=== PATIENT | male | born 1970 | race Caucasian/White ===

== ENCOUNTER 2022-01-09 11:39 | Outpatient (CLI) | payer OTHER, SELFPAY ==
[2022-01-09 21:40] LABS: Chloride* 102 mmol/L (96-114)
[2022-01-09 21:41] LABS: Potassium* 4.8 mmol/L (3.6-5.1); Sodium* 136 mmol/L (135-149)
[2022-01-09 21:43] LABS: Aspartate Amino Transferase* 29 U/L (12-35); Bilirubin Total* 0.4 mg/dL (0.1-1.5); Blood Urea Nitrogen* 45 mg/dL (7-30); Carbon Dioxide* 25 mmol/L (20-32); Cholesterol* 269 mg/dL (90-199); Creatinine* 2.6 mg/dL (0.5-1.5); Estimated Glomerular Filt Rate 29 ml/min; Total Protein* 6.9 g/dL (6.0-8.3)
[2022-01-09 21:44] LABS: Alanine Aminotransferase* 25 U/L (4-50); Alkaline Phosphatase* 72 U/L (40-150); Glucose* 123 mg/dL (60-115); HDL Cholesterol* 37 mg/dL (>=40); LDL Cholesterol Calculated 132 mg/dL (<100)
[2022-01-09 22:06] LABS: Triglycerides* 502 mg/dL (40-149)
[2022-01-10 03:59] LABS: Microalbumin Creatinine Ratio 80 mg/g (0-30); Microalbumin Urine 8 mg/dL
== END 2022-01-09 11:40 | disposition home or self-care (01) ==
PROVIDERS: PCP Physician Assistant Medical; Visit Provider Physician Assistant Medical
DX: E11.39 Type 2 diabetes mellitus with other diabetic ophthalmic complication (principal); R79.89 Other specified abnormal findings of blood chemistry; E87.5 Hyperkalemia; I10 Essential (primary) hypertension; D63.8 Anemia in other chronic diseases classified elsewhere
CPT/HCPCS: 80053; 80061; 82043; 82570

== ENCOUNTER 2022-04-08 10:42 | Outpatient (CLI) | payer OTHER, SELFPAY ==
[2022-04-09 11:58] LABS: Creatinine Urine 35.5 mg/dL
[2022-04-09 12:29] LABS: Vitamin B12* 309 pg/mL (243-894)
[2022-04-09 12:40] LABS: Microalbumin Creatinine Ratio 2470 mg/g (0-30); Microalbumin Urine 88 mg/dL
== END 2022-04-08 10:43 | disposition home or self-care (01) ==
PROVIDERS: PCP Physician Assistant Medical; Visit Provider Physician Assistant Medical
DX: E03.9 Hypothyroidism, unspecified (principal); E11.39 Type 2 diabetes mellitus with other diabetic ophthalmic complication
CPT/HCPCS: 82043; 82570; 82607; 84443

== ENCOUNTER 2022-09-19 08:45 | Outpatient (CLI) | payer OTHER, SELFPAY | END 2022-09-19 08:46 | disposition home or self-care (01) | LOC: NFLDREF 18:42 | PROVIDERS: PCP Physician Assistant Medical; Referring Provider Physician Assistant Medical; Visit Provider Physician Assistant Medical | DX: Z00.00 Encounter for general adult medical examination without abnormal findings (principal); E03.9 Hypothyroidism, unspecified; E11.9 Type 2 diabetes mellitus without complications; E78.5 Hyperlipidemia, unspecified; Z12.5 Encounter for screening for malignant neoplasm of prostate | CPT/HCPCS: 80053; 80061; 82043; 82570; 84153; 84443 ==

== ENCOUNTER 2022-10-18 13:52 | Outpatient (CLI) | payer OTHER, SELFPAY ==
--- NOTE | 2022-10-18 15:00 | CRLHL7_ITS ---
For Patients: As a result of the Century Cures Act, medical imaging exams and procedure reports are released immediately into your electronic medical record. You may view this report before your referring provider. If you have questions, please contact your health care provider. CLINICAL HISTORY: carotid artery stenosis follow up Comparison: 12/22/2014 TECHNIQUE: The carotid circulations and the vertebral arteries in the neck were examined with anglin-scale ultrasound, color-flow and Doppler spectral analysis. Degrees of stenosis were determined using SRU 2002 Consensus Panel Criteria. FINDINGS: Sonographic images demonstrate bilateral atherosclerotic plaque formation without suspicious soft tissue mass. There was antegrade blood flow demonstrated within the vertebral arteries. Elevated velocity within the right subclavian artery measuring up to 255 cm/second. The spectral Doppler tracings of the common carotid, internal and external carotid arteries demonstrate no abnormal turbulence or spectral broadening. There was no significant elevation of peak systolic blood flow which would indicate a hemodynamically-significant stenosis by SRU criteria. The ICA/CCA peak systolic velocity ratio measures 0.9 on the right and 1.4 on the left. IMPRESSION: Less than 50 percent stenosis of the internal carotid arteries bilaterally. Elevated velocity within the right subclavian artery. This may signify subclavian artery stenosis. Dictated by Yuri Bolaños MD @ 10/20/2022 12:40:43 PM (Electronically Signed)
== END 2022-10-18 13:53 | disposition home or self-care (01) ==
LOC: RAD 13:54
PROVIDERS: PCP Physician Assistant Medical; Visit Provider Physician Assistant Medical
DX: I35.0 Nonrheumatic aortic (valve) stenosis (principal); I65.23 Occlusion and stenosis of bilateral carotid arteries; I34.0 Nonrheumatic mitral (valve) insufficiency; I65.29 Occlusion and stenosis of unspecified carotid artery
CPT/HCPCS: 93306; 93880

== ENCOUNTER 2022-10-29 09:39 | Outpatient (CLI) | payer OTHER, SELFPAY ==
--- NOTE | 2022-10-29 11:08 | W.ANESCHARGE ---
Anesthesia Charges Start Date/Time Anesthesia Start Date: 10/29/22 Anesthesia Start Time: 10:52 Stop Date/Time Anesthesia Stop Date: 10/29/22 Anesthesia Stop Time: 12:05
--- NOTE | 2022-10-29 12:07 | W.ANESCHARGE ---
Anesthesia Charges Start Date/Time Anesthesia Start Date: 10/29/22 Anesthesia Start Time: 10:52 Stop Date/Time Anesthesia Stop Date: 10/29/22 Anesthesia Stop Time: 12:05
== END 2022-10-29 09:40 | disposition home or self-care (01) ==
LOC: OP CLINIC 09:39
PROVIDERS: PCP Physician Assistant Medical; Visit Provider Surgery
DX: Z12.11 Encounter for screening for malignant neoplasm of colon (principal); K63.5 Polyp of colon; Z86.010 Personal history of colon polyps; K52.9 Noninfective gastroenteritis and colitis, unspecified; D50.9 Iron deficiency anemia, unspecified
CPT/HCPCS: 43239; 45380; 45385; 813; 88305; J2704

== ENCOUNTER 2022-12-30 13:15 | Outpatient (CLI) | payer OTHER, SELFPAY | END 2022-12-30 13:16 | disposition home or self-care (01) | PROVIDERS: PCP Physician Assistant Medical; Visit Provider Physician Assistant Medical | DX: E11.39 Type 2 diabetes mellitus with other diabetic ophthalmic complication (principal); D63.8 Anemia in other chronic diseases classified elsewhere | CPT/HCPCS: 82607; 82746; 83540; 83550 ==

== ENCOUNTER 2023-07-15 14:42 | Outpatient (REF) | payer OTHER, SELFPAY ==
[2023-07-15 15:51] LABS: Hemoglobin* 12.6 gm/dL (13.5-17.5)
[2023-07-15 16:02] LABS: Creatinine Urine 99.9 mg/dL
[2023-07-15 16:08] LABS: Protein Creatinine Ratio Urine 2.65 (0-0.19); Total Protein Urine 265 mg/dL
[2023-07-15 16:18] LABS: Vitamin D 25 Hydroxy* 25 ng/mL (30-80)
[2023-07-15 16:38] LABS: Albumin* 4.6 g/dL (3.3-5.0); Chloride* 100 mmol/L (96-114); Sodium* 134 mmol/L (135-149)
[2023-07-15 16:40] LABS: Creatinine* 2.6 mg/dL (0.5-1.5); Estimated Glomerular Filt Rate 28 ml/min
[2023-07-15 16:41] LABS: Anion Gap 11 mEq/L (7-15); Blood Urea Nitrogen* 56 mg/dL (7-30); Carbon Dioxide* 23 mmol/L (20-32); Glucose* 146 mg/dL (60-115); Phosphorus* 3.9 mg/dL (2.5-4.5)
[2023-07-15 16:42] LABS: Calcium* 9.5 mg/dL (8.4-10.6)
[2023-07-15 16:53] LABS: PTH Intact* 45.8 pg/mL (14.2-75.2)
== END 2023-07-15 14:43 | disposition home or self-care (01) ==
LOC: NPINS 14:42
PROVIDERS: PCP Physician Assistant Medical; Visit Provider Internal Medicine Nephrology
DX: E55.9 Vitamin D deficiency, unspecified (principal)
CPT/HCPCS: 80069; 82306; 82570; 83036; 83970; 84156; 85018

== ENCOUNTER 2023-10-07 12:45 | Outpatient (CLI) | payer OTHER, SELFPAY | END 2023-10-07 12:46 | disposition home or self-care (01) | LOC: WOUND 12:47 | PROVIDERS: PCP Physician Assistant Medical; Visit Provider Nurse Practitioner Family | DX: E11.621 Type 2 diabetes mellitus with foot ulcer (principal); L97.512 Non-pressure chronic ulcer of other part of right foot with fat layer exposed; Z79.4 Long term (current) use of insulin | CPT/HCPCS: 11042; 87070; 87186; G0463 ==

== ENCOUNTER 2023-10-14 12:56 | Outpatient (CLI) | payer OTHER, SELFPAY | END 2023-10-14 12:57 | disposition home or self-care (01) | LOC: WOUND 12:56 | PROVIDERS: PCP Physician Assistant Medical; Visit Provider Nurse Practitioner Family | DX: E11.621 Type 2 diabetes mellitus with foot ulcer (principal); L97.512 Non-pressure chronic ulcer of other part of right foot with fat layer exposed; Z79.4 Long term (current) use of insulin; Z79.85 Long-term (current) use of injectable non-insulin antidiabetic drugs; Z79.84 Long term (current) use of oral hypoglycemic drugs | CPT/HCPCS: 97597 ==

== ENCOUNTER 2023-10-20 14:31 | Outpatient (CLI) | payer OTHER, SELFPAY | END 2023-10-20 14:32 | disposition home or self-care (01) | LOC: WOUND 14:31 | PROVIDERS: PCP Physician Assistant Medical; Visit Provider Nurse Practitioner Family | DX: E11.621 Type 2 diabetes mellitus with foot ulcer (principal); L97.512 Non-pressure chronic ulcer of other part of right foot with fat layer exposed; Z79.4 Long term (current) use of insulin | CPT/HCPCS: 11042 ==

== ENCOUNTER 2023-10-27 14:53 | Outpatient (CLI) | payer OTHER, SELFPAY | END 2023-10-27 14:54 | disposition home or self-care (01) | LOC: WOUND 14:53 | PROVIDERS: PCP Physician Assistant Medical; Visit Provider Nurse Practitioner Family | DX: E11.621 Type 2 diabetes mellitus with foot ulcer (principal); L97.512 Non-pressure chronic ulcer of other part of right foot with fat layer exposed; Z79.4 Long term (current) use of insulin; Z79.84 Long term (current) use of oral hypoglycemic drugs; Z79.85 Long-term (current) use of injectable non-insulin antidiabetic drugs | CPT/HCPCS: 11042 ==

== ENCOUNTER 2023-11-04 10:31 | Outpatient (CLI) | payer OTHER, SELFPAY | END 2023-11-04 10:32 | disposition home or self-care (01) | LOC: WOUND 10:31 | PROVIDERS: PCP Physician Assistant Medical; Visit Provider Nurse Practitioner Family | DX: E11.621 Type 2 diabetes mellitus with foot ulcer (principal); L97.512 Non-pressure chronic ulcer of other part of right foot with fat layer exposed; Z79.4 Long term (current) use of insulin; Z79.85 Long-term (current) use of injectable non-insulin antidiabetic drugs | CPT/HCPCS: 11042 ==

== ENCOUNTER 2023-11-11 10:35 | Outpatient (CLI) | payer OTHER, SELFPAY | END 2023-11-11 10:36 | disposition home or self-care (01) | LOC: WOUND 10:35 | PROVIDERS: PCP Physician Assistant Medical; Visit Provider Nurse Practitioner Family | DX: E11.621 Type 2 diabetes mellitus with foot ulcer (principal); L97.512 Non-pressure chronic ulcer of other part of right foot with fat layer exposed; Z79.4 Long term (current) use of insulin; Z79.84 Long term (current) use of oral hypoglycemic drugs; Z79.85 Long-term (current) use of injectable non-insulin antidiabetic drugs | CPT/HCPCS: G0463 ==

== ENCOUNTER 2023-11-18 10:35 | Outpatient (CLI) | payer OTHER, SELFPAY | END 2023-11-18 10:36 | disposition home or self-care (01) | LOC: WOUND 10:35 | PROVIDERS: PCP Physician Assistant Medical; Visit Provider Nurse Practitioner Family | DX: E11.621 Type 2 diabetes mellitus with foot ulcer (principal); Z79.4 Long term (current) use of insulin; L97.511 Non-pressure chronic ulcer of other part of right foot limited to breakdown of skin | CPT/HCPCS: 97602; G0463 ==

== ENCOUNTER 2023-12-02 10:32 | Outpatient (CLI) | payer OTHER, SELFPAY | END 2023-12-02 10:33 | disposition home or self-care (01) | LOC: WOUND 10:32 | PROVIDERS: PCP Physician Assistant Medical; Visit Provider Nurse Practitioner Family | DX: Z09 Encounter for follow-up examination after completed treatment for conditions other than malignant neoplasm (principal); Z86.31 Personal history of diabetic foot ulcer; E11.9 Type 2 diabetes mellitus without complications; Z79.4 Long term (current) use of insulin | CPT/HCPCS: G0463 ==

== ENCOUNTER 2024-04-12 12:20 | Outpatient (CLI) | payer OTHER, SELFPAY | END 2024-04-12 12:21 | disposition home or self-care (01) | LOC: NFLDREF 04-13 02:06 | PROVIDERS: PCP Physician Assistant Medical; Referring Provider Physician Assistant Medical; Visit Provider Physician Assistant Medical | DX: E11.39 Type 2 diabetes mellitus with other diabetic ophthalmic complication (principal); E11.22 Type 2 diabetes mellitus with diabetic chronic kidney disease; I12.9 Hypertensive chronic kidney disease with stage 1 through stage 4 chronic kidney disease, or unspecified chronic kidney disease; N18.32 Chronic kidney disease, stage 3b; E03.9 Hypothyroidism, unspecified; E78.5 Hyperlipidemia, unspecified; D63.8 Anemia in other chronic diseases classified elsewhere; R79.89 Other specified abnormal findings of blood chemistry; K25.9 Gastric ulcer, unspecified as acute or chronic, without hemorrhage or perforation; R80.9 Proteinuria, unspecified; Z12.5 Encounter for screening for malignant neoplasm of prostate; Z13.21 Encounter for screening for nutritional disorder | CPT/HCPCS: 80053; 80061; 82043; 82306; 82570; 82607; 83540; 83550; 84443; G0103 ==

== ENCOUNTER 2024-04-23 08:42 | Outpatient (CLI) | payer OTHER, SELFPAY ==
--- NOTE | 2024-04-23 10:45 | CRLHL7_ITS ---
For Patients: As a result of the Cures Act, medical imaging exams and procedure reports are released immediately into your electronic medical record. You may view this report before your referring provider. If you have questions, please contact your health care provider. CLINICAL HISTORY: Re-eval stenosis TECHNIQUE: The carotid circulations and the vertebral arteries in the neck were examined with anglin-scale ultrasound, color-flow and Doppler spectral analysis. Degrees of stenosis were determined using SRU 2002 Consensus Panel Criteria. COMPARISON: 10/18/2022 FINDINGS: Sonographic images demonstrate bilateral atherosclerotic plaque formation without suspicious soft tissue mass. There was antegrade blood flow demonstrated within the vertebral arteries and the subclavian arteries demonstrated a normal triphasic waveform. The spectral Doppler tracings of the common carotid, internal and external carotid arteries demonstrate no abnormal turbulence or spectral broadening. There was no significant elevation of peak systolic blood flow which would indicate a hemodynamically-significant stenosis by SRU criteria within the carotid arteries. The ICA/CCA peak systolic velocity ratio measures 1.1 on the right and 1.1 on the left. Velocity within the right subclavian artery measures 175 cm/second, previously measuring 255 cm/second. IMPRESSION: Less than 50 percent stenosis of the internal carotid arteries bilaterally. Improved velocity within the right subclavian artery since the prior study. Dictated by Yuri Bolaños MD @ 04/23/2024 1:05:36 PM (Electronically Signed)
== END 2024-04-23 08:43 | disposition home or self-care (01) ==
LOC: RAD 08:43
PROVIDERS: PCP Physician Assistant Medical; Visit Provider Physician Assistant Medical
DX: I51.7 Cardiomegaly (principal); I35.0 Nonrheumatic aortic (valve) stenosis; I35.1 Nonrheumatic aortic (valve) insufficiency; I65.29 Occlusion and stenosis of unspecified carotid artery
CPT/HCPCS: 93306; 93880

== ENCOUNTER 2024-06-22 09:20 | Outpatient (CLI) | payer OTHER, SELFPAY | END 2024-06-22 09:21 | disposition home or self-care (01) | LOC: NFLDREF 06-30 00:02 | PROVIDERS: PCP Physician Assistant Medical; Referring Provider Physician Assistant; Visit Provider Physician Assistant | DX: N18.32 Chronic kidney disease, stage 3b (principal); I10 Essential (primary) hypertension; E55.9 Vitamin D deficiency, unspecified; R80.9 Proteinuria, unspecified; E11.69 Type 2 diabetes mellitus with other specified complication | CPT/HCPCS: 80069; 82570; 83970; 84156; 85018 ==

== ENCOUNTER 2024-07-09 10:35 | Outpatient (CLI) | payer OTHER, SELFPAY ==
--- NOTE | 2024-07-09 10:45 | CRLHL7_ITS ---
For Patients: As a result of the Century Cures Act, medical imaging exams and procedure reports are released immediately into your electronic medical record. You may view this report before your referring provider. If you have questions, please contact your health care provider. CLINICAL HISTORY: Chronic kidney disease stage 4 COMPARISON: Ultrasound 04/08/2018 TECHNIQUE: Lyons scale and color Doppler images were acquired of the kidneys and urinary bladder. FINDINGS: Echogenic focus within the upper pole left kidney measures 5 x 2 x 6 millimeters. The right kidney measures 11.3cm in length and the left kidney measures 11.5cm in length. The renal cortex appears of normal thickness. The bladder wall is trabeculated and measures up to 6.1 millimeters. Prevoid bladder volume 128 cc. Postvoid bladder volume 113 cc. Color Doppler images reveal a normal appearance of both ureteral jets. IMPRESSION: Nonobstructing stone upper pole left kidney measuring 6 millimeters. Bladder wall trabeculation. Bladder wall measures up to 6.1 millimeters. Incomplete bladder emptying. Dictated by Yuri Bolaños MD @ 07/09/2024 11:41:16 AM (Electronically Signed)
== END 2024-07-09 10:36 | disposition home or self-care (01) ==
LOC: US 10:36
PROVIDERS: PCP Physician Assistant Medical; Visit Provider Physician Assistant
DX: N18.4 Chronic kidney disease, stage 4 (severe) (principal); N20.0 Calculus of kidney
CPT/HCPCS: 76770

== ENCOUNTER 2024-10-01 11:14 | Outpatient (CLI) | payer BC, SELFPAY ==
[2024-10-01 21:54] LABS: Chloride* 97 mmol/L (96-114); Sodium* 132 mmol/L (135-149)
[2024-10-01 21:55] LABS: Albumin* 4.1 g/dL (3.3-5.0); Potassium* 4.8 mmol/L (3.6-5.1)
[2024-10-01 21:58] LABS: Anion Gap 9 mEq/L (7-15); Blood Urea Nitrogen* 43 mg/dL (7-30); Calcium* 9.4 mg/dL (8.4-10.6); Carbon Dioxide* 26 mmol/L (20-32); Creatinine* 2.7 mg/dL (0.5-1.5); Estimated Glomerular Filt Rate 27 ml/min; Glucose* 98 mg/dL (60-115)
[2024-10-01 22:39] LABS: Hemoglobin* 13.1 gm/dL (13.5-17.5)
[2024-10-01 22:51] LABS: PTH Intact* 50.2 pg/mL (14.2-75.2)
[2024-10-04 11:43] LABS: eGFR by CKD-EP 24 (>=60)
== END 2024-10-01 11:15 | disposition home or self-care (01) ==
LOC: NPINS 11:15
PROVIDERS: PCP Physician Assistant Medical; Visit Provider Internal Medicine Nephrology
DX: N18.32 Chronic kidney disease, stage 3b (principal); E55.9 Vitamin D deficiency, unspecified; I10 Essential (primary) hypertension; E78.5 Hyperlipidemia, unspecified
CPT/HCPCS: 80069; 82043; 82565; 82570; 82610; 83970; 85018

== ENCOUNTER 2025-01-13 12:51 | Outpatient (CLI) | payer BC, SELFPAY ==
[2025-01-13 21:50] LABS: Chloride* 96 mmol/L (96-114); Sodium* 129 mmol/L (135-149)
[2025-01-13 21:51] LABS: Potassium* 4.3 mmol/L (3.6-5.1)
[2025-01-13 21:54] LABS: Anion Gap 9 mEq/L (7-15); Blood Urea Nitrogen* 58 mg/dL (7-30); Calcium* 9.4 mg/dL (8.4-10.6); Carbon Dioxide* 24 mmol/L (20-32); Creatinine* 3.0 mg/dL (0.5-1.5); Estimated Glomerular Filt Rate 24 ml/min; Glucose* 169 mg/dL (60-115)
== END 2025-01-13 12:52 | disposition home or self-care (01) ==
LOC: NPINS 12:52
PROVIDERS: PCP Physician Assistant Medical; Visit Provider Physician Assistant
DX: N18.4 Chronic kidney disease, stage 4 (severe) (principal)
CPT/HCPCS: 80048